=== PATIENT | male | born 1975 | race Caucasian/White ===

== ENCOUNTER 2017-05-06 15:41 | Emergency (ER) | payer OTHER ==
[~2017-05-06] VITALS: Ht 193 cm; Wt 117.8 kg
[2017-05-06] MEDS ORDERED: ONDANSETRON 2MG/ML, 2ML ONE (17:24)
[2017-05-06] MEDS ORDERED: FAMOTIDINE 20 MG/2 ML ONE (17:25)
[2017-05-06 17:30] LABS: MICROSCOPIC NOT IND
[2017-05-06] MEDS ORDERED: SODIUM CHLORIDE FLUSH 10ML SYR IVF ONE (17:30)
[2017-05-06] MEDS ORDERED: ONDANSETRON 2MG/ML, 2ML IVPush ONE (17:30)
[2017-05-06] MEDS ORDERED: FAMOTIDINE 20 MG/2 ML IVP ONE (17:30)
[2017-05-06 17:33] LABS: CULTURE INDICATED? NO
[2017-05-06 17:45] LABS: BASOPHILS # (AUTO) 0.03 x10^3/uL (0-0.1); BASOPHILS % (AUTO) 0 % (0-1); EOSINOPHILS # (AUTO) 0.33 x10^3/uL (0-0.4); EOSINOPHILS % (AUTO) 6 % (1-7); LYMPHOCYTES # (AUTO) 1.96 x10^3/uL (1-3.4); LYMPHOCYTES % (AUTO) 33 % (22-44); MD NO; MEAN CORPUSCULAR HEMOGLOBIN 31.6 pg (27.5-34.5); MEAN CORPUSCULAR HGB CONC 34.1 g/dL (33.2-36.2); MEAN CORPUSCULAR VOLUME 92.7 fL (81-97); MEAN PLATELET VOLUME 7.5 fL (7.4-10.4); MONOCYTES # (AUTO) 0.63 x10^3/uL (0.2-0.8); MONOCYTES % (AUTO) 11 % (2-9); NEUTROPHILS # (AUTO) 3.03 x10^3/uL (1.8-6.8); NEUTROPHILS % (AUTO) 51 % (42-75); PLATELET COUNT 239 x10^3/uL (130-400); RED BLOOD COUNT 5.57 x10^6/uL (4.38-5.82); RED CELL DISTRIBUTION WIDTH 13.7 % (9.4-14.8)
[2017-05-06 17:46] LABS: ALANINE AMINOTRANSFERASE 27 U/L (12-78); ALBUMIN 3.4 g/dL (3.4-5.0); ANION GAP 6 mmol/L (5-15); CALCIUM 8.1 mg/dL (8.5-10.1); CHLORIDE 108 mmol/L (98-107); CREATININE 1.18 mg/dL (0.7-1.3)
[2017-05-06 17:50] LABS: ALKALINE PHOSPHATASE 47 U/L (45-117); BILIRUBIN,TOTAL 0.3 mg/dL (0.2-1.0); TOTAL PROTEIN 7.2 g/dL (6.4-8.2); TROPONIN I < 0.015 ng/mL (0.000-0.045)
[2017-05-06] MEDS ORDERED: HYDR200T PO (18:00)
[2017-05-06] MEDS ORDERED: TEST200V3 IM/IV (18:00)
[2017-05-06] MEDS ORDERED: CEFD300C37 PO (18:00)
[2017-05-06] MEDS ORDERED: DICL75TA2 PO (18:00)
[2017-05-06] MEDS ORDERED: OMNIPAQUE 350 MG/ML, 100ML BOTTLE ONE (18:20)
[2017-05-06 19:17] VITALS: BP 137/92
== END 2017-05-06 19:19 | disposition home or self-care (01) ==
LOC: ED 16:38
DX: R10.12 Left upper quadrant pain (principal); R19.7 Diarrhea, unspecified; R11.2 Nausea with vomiting, unspecified
CPT/HCPCS: 36415; 74177; 80053; 81003; 83690; 83880; 84484; 85025; 93005; 96374; 96375; 99285; J2405; Q9967; S0028